=== PATIENT | female | born 2005 | race Caucasian/White ===

== ENCOUNTER → 2023-03-12 | Outpatient (CLI) | payer OTHER | LOC: LAB SHORT 14:07 → LAB 14:07 | DX: J02.9 Acute pharyngitis, unspecified (principal) | CPT/HCPCS: 87081 ==

== ENCOUNTER 2023-07-08 07:24 | Day surgery (SDC) | payer BC, OTHER ==
[2023-07-08] VITALS (8 sets, daily range): BP systolic 105–124; BP diastolic 53–93
[~2023-07-08] VITALS: Ht 152.4 cm; Wt 90.9 kg
[~2023-07-08 07:24] MED LIST: IBUP200 PO
[2023-07-08] MEDS ORDERED: ACET500 PO (11:05)
--- NOTE | 2023-07-08 11:29 | NUR ---
Ambulatory in Day Surgery. History, Chart, Medications and Allergies reviewed before start of procedure.Lungs clear T/O to Auscultation. Patient confirms NPO status and agrees with scheduled surgery. Pre-Op teaching done. Pt verbalizes understanding. Patient States Post-Procedure ride home has been arranged. PT REPORTS NOT TAKING ANY CHLORHEXADINE SHOWERS, REPORTS WAS NOT GIVEN ANY PREOP. DR ROWLAND NOTIFIED. DISCUSSED WITH RESPIRATORY PHYSICIAN.
--- NOTE | 2023-07-08 12:53 | NUR ---
07/08/23 1253 MIKE YOUNG 20ML OF LIDOCAINE 1% W/EPI WAS INJECTED TO OPSITE BY DR. ROWLAND AT 1220
--- NOTE | 2023-07-08 14:46 | NUR ---
Discharge instructions reviewed with patient. Patient verbalizes understanding. Copy given to patient to take home. Kirk instructions/output tracker placed in discharge folder. extra dressing sent home with pt. Patient States Post-Procedure ride home has been arranged. Discharged via wheelchair to private car for ride home.
== END 2023-07-08 14:50 | disposition home or self-care (01) ==
LOC: ORSCMMR 07:24 → ORD 09:00 → ORSCMMR 14:50
PROVIDERS: Surgery
PROC: 0HX8XZZ Transfer Buttock Skin, External Approach (ICD-10-PCS; principal; 2023-07-08 12:00)
DX: L05.91 Pilonidal cyst without abscess (principal); E66.01 Morbid (severe) obesity due to excess calories; Z68.39 Body mass index [BMI] 39.0-39.9, adult; D68.51 Activated protein C resistance; Z79.899 Other long term (current) drug therapy
CPT/HCPCS: 88305; J0295; J0330; J1100; J1885; J2250; J2405; J2704; J3010; J7120